=== PATIENT | female | born 1995 | race Caucasian/White ===

== ENCOUNTER 2016-06-15 07:59 | Emergency (ER) | payer BC ==
[~2016-06-15] VITALS: Ht 157.5 cm; Wt 66.0 kg
[2016-06-15 08:32] VITALS: BP 111/72
== END 2016-06-15 11:04 | disposition home or self-care (01) ==
LOC: ER 09:11
DX: H57.8 Other specified disorders of eye and adnexa (principal); H04.123 Dry eye syndrome of bilateral lacrimal glands
CPT/HCPCS: 99282

== ENCOUNTER 2016-08-18 01:21 | Emergency (ER) | payer BC ==
[~2016-08-18] VITALS: Ht 157.5 cm; Wt 69.0 kg
[2016-08-18 09:19] LABS: BASOPHILS % 1.2 % (0.0-2.0); DIFFERENTIAL COMMENT 0; EOSINOPHILS % 7.1 % (0.0-5.0); HEMATOCRIT. 42.8 % (36.0-48.0); HEMOGLOBIN. 14.7 g/dL (12.0-16.0); LYMPHOCYTES % 23.5 % (20.0-50.0); MEAN CORPUSCULAR HEMOGLOBIN 26.7 pg (28.0-32.0); MEAN CORPUSCULAR HGB CONC 34.2 g/dL (31.0-37.0); MEAN CORPUSCULAR VOLUME 77.9 fL (81.0-99.0); MEAN PLATELET VOLUME 7.7 fl (7.4-10.4); MONOCYTES % 7.6 % (2.0-8.0); NEUTROPHILS % 60.6 % (40.0-76.0); PLATELET 306 x1000/uL (130-400); RED CELL DISTRIBUTION WIDTH 13.4 % (11.6-14.6); WHITE BLOOD COUNT 9.1 x1000/uL (4.5-11.0)
[2016-08-18 09:25] LABS: ALBUMIN 4.1 g/dL (3.4-5.0); ANION GAP 10; CALCIUM 9.5 mg/dL (8.5-10.1); CARBON DIOXIDE 27 mEq/L (21-32); CHLORIDE 105 mEq/L (98-107); INDEX HEMOLYSI 1 (1-3); INDEX ICTERIC 1 (1-4); INDEX LIPEMIC 1 (1-3); UREA NITROGEN BLOOD 9 mg/dL (7-21)
[2016-08-18 09:28] LABS: CLARITY URINE CLOUDY (CLEAR); COLOR URINE YELLOW (YELLOW); GLUCOSE URINE NEGATIVE (NEGATIVE); KETONES URINE NEGATIVE (NEGATIVE); LEUKOCYTE ESTERASE URINE 2+ (NEGATIVE); NITRITE URINE NEGATIVE (NEGATIVE); OCCULT BLOOD URINE NEGATIVE (NEGATIVE); PH URINE 6.5 (4.5-8.0); PROTEIN URINE NEGATIVE (NEGATIVE); SPECIFIC GRAVITY URINE 1.015 (1.005-1.030); UROBILINOGEN URINE 0.2 E.U./dL (0.2-1.0)
[2016-08-18 09:29] VITALS: BP 99/55
[2016-08-18 09:29] LABS: ALANINE AMINOTRANSFERASE 21 IU/L (13-61); eGFR > 60 mL/min (>60)
[2016-08-18 09:49] LABS: SQUAMOUS EPITHELIAL CELL URINE 2+ /lpf (RARE/1+)
[2016-08-18 09:50] LABS: BACTERIA URINE 1+
[2016-08-18 09:52] LABS: RBC URINE NONE SEEN /hpf (0-2); WBC URINE 0-2 /hpf (0-2)
== END 2016-08-18 09:54 | disposition home or self-care (01) ==
LOC: ER 01:22
DX: N39.0 Urinary tract infection, site not specified (principal)
CPT/HCPCS: 36415; 80053; 81001; 85025; 99284